=== PATIENT | female | born 1975 | race Caucasian/White ===

== ENCOUNTER 2016-05-14 05:31 | Day surgery (SDC) | payer BC ==
[~2016-05-14] VITALS: Ht 170.2 cm; Wt 146.1 kg
[~2016-05-14 05:31] MED LIST: LISINOPRIL10 MG PO; METFORMIN HCL500 MG PO
[2016-05-14 06:48] VITALS: BP 129/86
[2016-05-14 06:52] LABS: POINT-OF-CARE METER ID UU14174212
[2016-05-14 08:46] LABS: POINT-OF-CARE METER ID UU13113675
[2016-05-14 09:00] VITALS: BP 131/65
[2016-05-14 09:56] VITALS: BP 126/73
== END 2016-05-14 10:00 | disposition home or self-care (01) ==
LOC: SDC 05:31
PROVIDERS: Obstetrics & Gynecology Gynecologic Oncology
PROC: 0UDB8ZX Extraction of Endometrium, Via Natural or Artificial Opening Endoscopic, Diagnostic (ICD-10-PCS; principal; 2016-05-14)
DX: N93.8 Other specified abnormal uterine and vaginal bleeding (principal); N84.0 Polyp of corpus uteri; N81.6 Rectocele; E11.9 Type 2 diabetes mellitus without complications; E66.01 Morbid (severe) obesity due to excess calories; Z68.43 Body mass index [BMI] 50.0-59.9, adult; I10 Essential (primary) hypertension; E78.5 Hyperlipidemia, unspecified; M06.9 Rheumatoid arthritis, unspecified; F17.200 Nicotine dependence, unspecified, uncomplicated; Z88.0 Allergy status to penicillin; Z88.8 Allergy status to other drugs, medicaments and biological substances
CPT/HCPCS: 82948; 88305; J0131; J0330; J1100; J1170; J1580; J1885; J2250; J2405; J2765; J3010; J7050; S0030

== ENCOUNTER 2016-12-30 21:40 | Inpatient (IN) | payer BC ==
[~2016-12-30] VITALS: Ht 167.6 cm; Wt 144.7 kg
[~2016-12-30 21:40] MED LIST changes: +CRESTOR40 MG PO
[2016-12-31 09:36] LABS: POINT-OF-CARE METER ID UU14174212
[2016-12-31 09:38] VITALS: BP 123/54
[2016-12-31 12:45] LABS: POINT-OF-CARE METER ID UU13113675; POINT-OF-CARE USER ID 515036437
[2016-12-31 16:52] VITALS: BP 111/59
[2016-12-31 18:08] LABS: POINT-OF-CARE METER ID UU14162508
[2016-12-31 18:49] LABS: HEMATOCRIT 39.3 % (36.0-46.0); MCH 26.2 PG (29.0-34.0); MCHC 31.6 G/DL (30.0-36.0); MCV 82.9 FL (83-99); MEAN PLAT.VOLUME 9.4 uM^3 (9.5-12.4); PLATELET COUNT 323 K/uL (156-360); RBC DIS.WIDTH-CV 14.2 % (11.8-14.6); RBC DIS.WIDTH-SD 43.1 % (39-53); RED BLOOD COUNT 4.74 M/uL (3.80-5.20); WHITE BLOOD COUNT 14.4 K/uL (4.1-10.2)
[2016-12-31 19:11] LABS: ANION GAP 10 MEQ/L (2-14); CHLORIDE 101 MEQ/L (99-109); GFR ESTIMATE (CALCULATED) > 59 mL/min/; GLUCOSE 145 mg/dL (70-99); POTASSIUM 4.4 MEQ/L (3.7-5.4); SAMPLE HEMOLYSIS CHECK 0; SAMPLE ICTERIC CHECK 0; SAMPLE LIPEMIA CHECK 0; SODIUM 135 MEQ/L (136-147); UREA NITROGEN (BUN) 8 mg/dL (9-23)
[2016-12-31 19:50] VITALS: BP 101/54
[2016-12-31 23:25] VITALS: BP 102/54
[2016-12-31 23:53] LABS: POINT-OF-CARE METER ID UU14314084
[2017-01-01 03:00] VITALS: BP 105/55
[2017-01-01 05:57] LABS: POINT-OF-CARE METER ID UU14314084
[2017-01-01 07:03] LABS: HEMATOCRIT 37.8 % (36.0-46.0); MCH 26.8 PG (29.0-34.0); MCV 83.8 FL (83-99); MEAN PLAT.VOLUME 9.9 uM^3 (9.5-12.4); PLATELET COUNT 286 K/uL (156-360); RBC DIS.WIDTH-CV 14.7 % (11.8-14.6); RED BLOOD COUNT 4.51 M/uL (3.80-5.20); WHITE BLOOD COUNT 13.1 K/uL (4.1-10.2)
[2017-01-01 07:29] LABS: ANION GAP 10 MEQ/L (2-14); CHLORIDE 99 MEQ/L (99-109); GFR ESTIMATE (CALCULATED) > 59 mL/min/; GLUCOSE 129 mg/dL (70-99); POTASSIUM 4.3 MEQ/L (3.7-5.4); SAMPLE HEMOLYSIS CHECK 0; SAMPLE ICTERIC CHECK 0; SAMPLE LIPEMIA CHECK 0; SODIUM 138 MEQ/L (136-147); UREA NITROGEN (BUN) 6 mg/dL (9-23)
[2017-01-01 07:57] VITALS: BP 107/64
[2017-01-01 11:21] LABS: POINT-OF-CARE METER ID UU14162508
[2017-01-01 12:03] VITALS: BP 1120/61
[2017-01-01 16:18] LABS: POINT-OF-CARE METER ID UU14162508
[2017-01-01 17:13] VITALS: BP 120/65
[2017-01-01 19:00] VITALS: BP 119/67
[2017-01-01 21:42] LABS: POINT-OF-CARE METER ID UU14162508
[2017-01-01 22:50] VITALS: BP 111/58; BP 119/59
[2017-01-02 02:45] VITALS: BP 103/86
[2017-01-02 06:22] LABS: POINT-OF-CARE METER ID UU14162508
[2017-01-02 06:49] LABS: HEMATOCRIT 36.2 % (36.0-46.0); MCH 26.2 PG (29.0-34.0); MCHC 31.5 G/DL (30.0-36.0); MCV 83.2 FL (83-99); MEAN PLAT.VOLUME 9.6 uM^3 (9.5-12.4); PLATELET COUNT 276 K/uL (156-360); RBC DIS.WIDTH-CV 14.5 % (11.8-14.6); RBC DIS.WIDTH-SD 44.1 % (39-53); RED BLOOD COUNT 4.35 M/uL (3.80-5.20); WHITE BLOOD COUNT 12.6 K/uL (4.1-10.2)
[2017-01-02 07:11] LABS: ANION GAP 8 MEQ/L (2-14); CHLORIDE 98 MEQ/L (99-109); GFR ESTIMATE (CALCULATED) > 59 mL/min/; GLUCOSE 134 mg/dL (70-99); SAMPLE HEMOLYSIS CHECK 0; SAMPLE ICTERIC CHECK 0; SAMPLE LIPEMIA CHECK 0; SODIUM 135 MEQ/L (136-147); UREA NITROGEN (BUN) 5 mg/dL (9-23)
[2017-01-02 08:15] VITALS: BP 102/58
[2017-01-02] MEDS ORDERED: TRAMADOL HCL50 MG PO (09:45)
== END 2017-01-02 11:20 | disposition home or self-care (01) | DRG 742 ==
LOC: ENRESERV 21:40 → 2SOUTH 12-31 08:41 → ENRESERV 12-31 14:15 → 2SOUTH 12-31 14:40 → 2EAST 12-31 15:20
PROVIDERS: Obstetrics & Gynecology Gynecologic Oncology
DX: N80.0 Endometriosis of uterus (principal); Z68.43 Body mass index [BMI] 50.0-59.9, adult; N93.8 Other specified abnormal uterine and vaginal bleeding; E66.01 Morbid (severe) obesity due to excess calories; E11.9 Type 2 diabetes mellitus without complications; Z80.41 Family history of malignant neoplasm of ovary; Z80.49 Family history of malignant neoplasm of other genital organs
CPT/HCPCS: 36415; 80048; 82948; 85027; 86850; 86900; 86901; 86920; 88307; J0131; J0330; J1170; J1580; J1650; J1815; J2405; J2710; J2765; J3010; J7050; J7120; S0030